=== PATIENT | female | born 1950 | race Caucasian/White ===

== ENCOUNTER → 2019-02-20 | Outpatient (CLI) | payer MEDICARE, OTHER | LOC: LAB 18:00 | DX: N30.91 Cystitis, unspecified with hematuria (principal) ==

== ENCOUNTER → 2019-03-09 | Outpatient (CLI) | payer MEDICARE, OTHER | LOC: LAB 14:36 | PROVIDERS: Nurse Practitioner Family | DX: N39.0 Urinary tract infection, site not specified (principal) | CPT/HCPCS: Q9967 ==

== ENCOUNTER → 2024-04-06 | Outpatient (CLI) | payer MEDICARE, OTHER | LOC: RAD 08:28 → MAMMO 08:30 | DX: Z13.820 Encounter for screening for osteoporosis (principal) ==